=== PATIENT | male | born 1960 | race Caucasian/White ===

== ENCOUNTER 2021-01-08 19:42 | Inpatient (IN) | payer MEDICARE, MEDICAID ==
[~2021-01-08] VITALS: Ht 172.7 cm; Wt 78.6 kg
[2021-01-08 19:48] VITALS: BP 166/112
[2021-01-08] MEDS ORDERED: NOREPINEPHRINE 8 MG/250ML KIT 250 ML IV ONE (19:48)
[2021-01-08] MEDS: NOREPINEPHRINE 8 MG/250ML KIT 250 ML IV SCH (20:00)
[2021-01-08] MEDS ORDERED: PROPOFOL 100 ML IV ONE (20:05)
[2021-01-08] MEDS: PROPOFOL 100 ML IV SCH (20:15)
[2021-01-08 20:23] LABS: Basophils # (auto) 0.1 10 ^3/uL (0-0.2); Basophils % (auto) 0.4 % (0.0-2.0); Eosinophils # (auto) 0.1 10 ^3/uL (0-0.8); Eosinophils % (auto) 0.7 % (0.0-7.0); Hematocrit 44.5 % (41.0-53.0); Hemoglobin 14.9 g/dL (13.5-17.5); Lymphocytes # (auto) 5.8 10 ^3/uL (0.4-5.4); Mean Corpuscular Hemoglobin 31.3 pg (28.0-32.0); Mean Corpuscular Hgb Conc. 33.4 g/dL (32.0-36.0); Mean Corpuscular Volume 93.5 fL (80.0-100.0); Monocytes # (auto) 1.1 10 ^3/uL (0-1.3); Monocytes % (auto) 6.9 % (0.0-12.0); Nucleated Red Blood Cells % 0.1 %; Platelet Count (auto) 207 10^3/uL (140-450); Red Blood Cells 4.75 10^6/uL (4.5-5.90); Red Cell Distribution Width 16.5 % (11.8-14.3); White Blood Cell 16.1 10^3/uL (4.4-10.8)
[2021-01-08 20:41] LABS: Urine Bacteria FEW /hpf (None Seen); Urine Blood 1+ /uL (Negative); Urine Specific Gravity 1.007 (1.001-1.035); Urine WBC 43 /hpf (0 - 3)
[2021-01-08 20:42] LABS: Potassium 3.8 mmol/L (3.5-5.1)
[2021-01-08 20:53] LABS: Albumin 2.9 g/dL (3.4-5.0); BUN/Creatinine Ratio 6.7; Bilirubin, Total 0.4 mg/dL (0.2-1.0); Calcium 8.3 mg/dL (8.5-10.1); Magnesium 2.8 mg/dL (1.6-2.6); Total Protein 7.6 g/dL (6.4-8.2)
[2021-01-08 21:06] LABS: Alcohol, Urine < 3.0 mg/dL (0-10); Amphetamine Screen, Urine NEGATIVE (NEGATIVE); Barbiturate Scree,Urine NEGATIVE (NEGATIVE); Benzodiazephine Screen, Urine NEGATIVE (NEGATIVE); Cannabinoid Screen, Urine NEGATIVE (NEGATIVE); Cocaine Screen, Urine NEGATIVE (NEGATIVE); Opiate Scree,Urine NEGATIVE (NEGATIVE); Phencyclidine Screen, Urine NEGATIVE (NEGATIVE)
[2021-01-08 21:07] LABS: INR 1.06 (0.9-1.15); Partial Thromboplastin Time 27.2 sec (23.0-31.2)
[2021-01-08 21:27] VITALS: BP 158/68
[2021-01-08 22:39] VITALS: BP 122/80
[2021-01-08] MEDS ORDERED: PIPERACILLIN-TAZOB 3.375GM 100 ML IV ONE (23:00)
[2021-01-08] MEDS ORDERED: VANCOMYCIN 1GM/250ML 250 ML IV ONE (23:00)
[2021-01-09] VITALS (78 sets, daily range): BP systolic 100–143; BP diastolic 60–88
[2021-01-09] MEDS ORDERED: SODIUM BICARBONATE 8.4 % INJ 50ML VIAL IV ONE ×2 (00:38→00:45)
[2021-01-09] MEDS ORDERED: MORPHINE SULF INJ 2 MG/ML SYRINGE 1ML IV PRN (02:00)
[2021-01-09] MEDS ORDERED: NITROGLYCERIN 0.4 MG SL TAB SL PRN (02:00)
[2021-01-09] MEDS: SODIUM CHLORIDE 0.9% 1,000 ML IV SCH ×2 (02:00→18:40)
[2021-01-09 04:50] LABS: Lactic Acid w/Reflex 4.2 mmol/L (0.4-2.0)
[2021-01-09] MEDS ORDERED: HEPARIN SODIUM (PORCINE) 5000 UNITS/ML 1ML VIAL SC SCH (06:00)
[2021-01-09] MEDS: PIPERACILLIN-TAZOB 3.375GM 100 ML IV SCH ×3 (06:00→22:00)
[2021-01-09] MEDS: PROPOFOL 100 ML IV SCH ×5 (08:00→22:45)
[2021-01-09] MEDS ORDERED: DEXTROSE (50%) 50ML SYRG IV PRN ×2 (09:45→20:00)
[2021-01-09] MEDS ORDERED: FAMOTIDINE (10MG/ML) 2ML VL IV SCH (10:00)
[2021-01-09] MEDS ORDERED: AZITHROMYCIN 500MG/ 250ML 250 ML IV SCH (10:00)
[2021-01-09 10:08] LABS: Calcium 8.3 mg/dL (8.5-10.1); INR 1.09 (0.9-1.15); Partial Thromboplastin Time 28.5 sec (23.0-31.2); Potassium 3.2 mmol/L (3.5-5.1)
[2021-01-09 10:13] LABS: BUN/Creatinine Ratio 10.2
[2021-01-09 11:03] LABS: Phosphorus 0.9 mg/dL (2.5-4.90)
[2021-01-09] MEDS ORDERED: VANCOMYCIN PER PHARMACY 0 MG IV SCH (11:30)
[2021-01-09] MEDS ORDERED: POTASSIUM PHOSPHATE 44 MEQ in D5W 5% 250 ML IV ONE ×2 (11:30→14:00)
[2021-01-09] MEDS ORDERED: ENOXAPARIN SOD 100 MG/1 ML SYRINGE SC ONE (11:30)
[2021-01-09] MEDS ORDERED: POTASSIUM CHLORIDE 40 MEQ, LIDOCAINE 1% (LOCAL ANESTH.) 4 ML in SODIUM CHL 0.9% 250 ML IV ONE (11:30)
[2021-01-09] MEDS ORDERED: FUROSEMIDE 20 MG/2 ML VIAL IV ONE (11:45)
[2021-01-09] MEDS: NEUTRA-PHOS TABLET PO SCH ×2 (12:00→17:18)
[2021-01-09] MEDS ORDERED: POTASSIUM CHLORIDE 20 MEQ, LIDOCAINE 1% (LOCAL ANESTH.) 2 ML in SODIUM CHL 0.9% 100 ML IV ONE (12:00)
[2021-01-09] MEDS: ACCU-CHEK COMFORT CURVE STRIP VI SCH ×3 (12:03→20:00)
[2021-01-09] MEDS: InsuLIN REG 1unit/0.01ml Soln (100units/ml) SC SCH ×3 (12:04→20:00)
[2021-01-09] MEDS ORDERED: OPTISON 3ml Vial for INJ IV ONE ×2 (12:29→12:30)
[2021-01-09] MEDS ORDERED: EPINEPHrine HCL 1 MG/10 ML SYRG IV ONE (12:56)
[2021-01-09 16:18] LABS: BUN/Creatinine Ratio 15.4; Calcium 7.6 mg/dL (8.5-10.1); Potassium 4.2 mmol/L (3.5-5.1)
[2021-01-09] MEDS ORDERED: VANCOMYCIN 1GM/250ML 250 ML IV ONE (17:00)
[2021-01-09] MEDS ORDERED: BENZ100C97 PO (17:54)
[2021-01-09] MEDS ORDERED: LORA0.5T20 PO (17:54)
[2021-01-09] MEDS ORDERED: LOSA-39 PO (17:54)
[2021-01-09] MEDS ORDERED: MIRT-66 PO (17:54)
[2021-01-09] MEDS ORDERED: ONDA-144 PO (17:54)
[2021-01-09] MEDS ORDERED: TRAZ300T16 PO (17:54)
[2021-01-09] MEDS ORDERED: IBUP200C3 PO (17:54)
[2021-01-09] MEDS ORDERED: HYDR1TAB97 PO (18:17)
[2021-01-09] MEDS ORDERED: ASPI325T4 PO (18:17)
[2021-01-09] MEDS ORDERED: AML5T PO (18:17)
[2021-01-09] MEDS ORDERED: CHOL20009 PO (18:17)
[2021-01-09] MEDS ORDERED: CLON0.1T PO (18:17)
[2021-01-09] MEDS ORDERED: SENN1TAB14 PO (18:17)
[2021-01-09] MEDS ORDERED: LACT10SO70 PO (18:17)
[2021-01-09] MEDS ORDERED: MULTCAP45 PO (18:17)
[2021-01-09] MEDS ORDERED: PRAV20TA3 PO (18:17)
[2021-01-09] MEDS: NOREPINEPHRINE 8 MG/250ML KIT 250 ML IV SCH (20:00)
[2021-01-09] MEDS: SODIUM CHLOR 0.9% PF (SALINE LOCK) 10ML VIAL/SYR IV SCH (22:00)
[2021-01-09] MEDS: ENOXAPARIN SOD 100 MG/1 ML SYRINGE SC SCH (22:00)
[2021-01-09] MEDS: ATORVASTATIN 20 MG TAB PO SCH (22:00)
[2021-01-09 22:01] LABS: BUN/Creatinine Ratio 13.4; Calcium 7.6 mg/dL (8.5-10.1); Potassium 4.2 mmol/L (3.5-5.1)
[2021-01-10] VITALS (103 sets, daily range): BP systolic 105–131; BP diastolic 59–81
[2021-01-10 04:00] LABS: Basophils # (auto) 0.1 10 ^3/uL (0-0.2); Basophils % (auto) 0.4 % (0.0-2.0); Eosinophils # (auto) 0 10 ^3/uL (0-0.8); Eosinophils % (auto) 0.2 % (0.0-7.0); Hematocrit 39.2 % (41.0-53.0); Hemoglobin 13.6 g/dL (13.5-17.5); Lymphocytes # (auto) 1.2 10 ^3/uL (0.4-5.4); Lymphocytes % (auto) 8.1 % (10.0-50.0); Mean Corpuscular Hemoglobin 31.4 pg (28.0-32.0); Mean Corpuscular Hgb Conc. 34.7 g/dL (32.0-36.0); Mean Corpuscular Volume 90.5 fL (80.0-100.0); Monocytes # (auto) 0.9 10 ^3/uL (0-1.3); Monocytes % (auto) 5.9 % (0.0-12.0); Neutrophils % (auto) 85.4 % (37.0-80.0); Platelet Count (auto) 196 10^3/uL (140-450); Red Blood Cells 4.33 10^6/uL (4.5-5.90); Red Cell Distribution Width 16.5 % (11.8-14.3); White Blood Cell 15.2 10^3/uL (4.4-10.8)
[2021-01-10] MEDS: InsuLIN REG 1unit/0.01ml Soln (100units/ml) SC SCH ×5 (04:00→15:56)
[2021-01-10] MEDS: ACCU-CHEK COMFORT CURVE STRIP VI SCH ×5 (04:00→15:56)
[2021-01-10] MEDS: PROPOFOL 100 ML IV SCH ×6 (04:19→20:50)
[2021-01-10 04:22] LABS: Magnesium 1.6 mg/dL (1.6-2.6); Phosphorus 3.5 mg/dL (2.5-4.90)
[2021-01-10 04:34] LABS: INR 1.14 (0.9-1.15); Partial Thromboplastin Time 38.2 sec (23.0-31.2)
[2021-01-10 05:15] LABS: Albumin 2.4 g/dL (3.4-5.0); Calcium 7.5 mg/dL (8.5-10.1)
[2021-01-10 05:18] LABS: BUN/Creatinine Ratio 14.4; Bilirubin, Total 0.6 mg/dL (0.2-1.0); Total Protein 6.7 g/dL (6.4-8.2)
[2021-01-10] MEDS: PIPERACILLIN-TAZOB 3.375GM 100 ML IV SCH ×3 (06:00→22:15)
[2021-01-10] MEDS: NEUTRA-PHOS TABLET PO SCH ×3 (08:00→17:10)
[2021-01-10] MEDS: ASPirin 81 mg TAB PO SCH (10:00)
[2021-01-10 10:12] LABS: BUN/Creatinine Ratio 16.2; Calcium 7.7 mg/dL (8.5-10.1); Potassium 3.6 mmol/L (3.5-5.1)
[2021-01-10] MEDS: VANCOMYCIN 1GM/250ML 250 ML IV SCH ×2 (11:04→20:50)
[2021-01-10] MEDS: FAMOTIDINE (10MG/ML) 2ML VL IV SCH ×2 (11:04→20:50)
[2021-01-10] MEDS: SODIUM CHLOR 0.9% PF (SALINE LOCK) 10ML VIAL/SYR IV SCH ×2 (11:05→20:50)
[2021-01-10] MEDS: SODIUM CHLORIDE 0.9% 1,000 ML IV SCH ×2 (11:20→17:18)
[2021-01-10] MEDS: ARTIFICIAL TEAR OPTH(EYE) OINT 3.5GM EACHEYE PRN (11:40)
[2021-01-10] MEDS ORDERED: MAGNESIUM SULFATE 1GM/100ML 100 ML IV ONE (12:30)
[2021-01-10] MEDS ORDERED: FUROSEMIDE 40 MG/4 ML VIAL IV ONE (12:30)
[2021-01-10 12:59] LABS: Cholesterol 96 mg/dL (< 200)
[2021-01-10 13:02] LABS: HDL Cholesterol 38 mg/dL (40-59); LDL Cholesterol 44 mg/dL (< 100); Triglycerides 121 mg/dL (< 150)
[2021-01-10] MEDS: ENOXAPARIN SOD 100 MG/1 ML SYRINGE SC SCH ×2 (13:02→20:50)
[2021-01-10 16:25] LABS: BUN/Creatinine Ratio 12.3; Calcium 7.5 mg/dL (8.5-10.1); Magnesium 2.4 mg/dL (1.6-2.6); Potassium 3.4 mmol/L (3.5-5.1)
[2021-01-10] MEDS ORDERED: POTASSIUM CHL 20MEQ/100ML 100 ML IV ONE (17:00)
[2021-01-10] MEDS: NOREPINEPHRINE 8 MG/250ML KIT 250 ML IV SCH (19:34)
[2021-01-10] MEDS: ATORVASTATIN 20 MG TAB PO SCH (20:50)
[2021-01-11] VITALS (103 sets, daily range): BP systolic 96–240; BP diastolic 43–235
[2021-01-11 04:28] LABS: Basophils # (auto) 0 10 ^3/uL (0-0.2); Basophils % (auto) 0.4 % (0.0-2.0); Eosinophils # (auto) 0 10 ^3/uL (0-0.8); Eosinophils % (auto) 0.5 % (0.0-7.0); Hematocrit 35.9 % (41.0-53.0); Hemoglobin 12.2 g/dL (13.5-17.5); Lymphocytes % (auto) 19.6 % (10.0-50.0); Mean Corpuscular Hemoglobin 30.7 pg (28.0-32.0); Mean Corpuscular Hgb Conc. 34.1 g/dL (32.0-36.0); Mean Corpuscular Volume 90.2 fL (80.0-100.0); Monocytes # (auto) 0.7 10 ^3/uL (0-1.3); Monocytes % (auto) 6.6 % (0.0-12.0); Neutrophils # (auto) 7.3 10 ^3/uL (1.6-8.6); Neutrophils % (auto) 72.9 % (37.0-80.0); Nucleated Red Blood Cells % 0.1 %; Platelet Count (auto) 188 10^3/uL (140-450); Red Blood Cells 3.98 10^6/uL (4.5-5.90)
[2021-01-11 04:29] LABS: Albumin 2.1 g/dL (3.4-5.0); Calcium 7.4 mg/dL (8.5-10.1); Potassium 4.3 mmol/L (3.5-5.1)
[2021-01-11 04:31] LABS: BUN/Creatinine Ratio 8.6
[2021-01-11 04:34] LABS: Bilirubin, Total 0.5 mg/dL (0.2-1.0); Total Protein 6.2 g/dL (6.4-8.2)
[2021-01-11] MEDS: PIPERACILLIN-TAZOB 3.375GM 100 ML IV SCH ×3 (05:30→21:58)
[2021-01-11 10:10] LABS: Basophils # (auto) 0.1 10 ^3/uL (0-0.2); Basophils % (auto) 0.6 % (0.0-2.0); Eosinophils # (auto) 0.1 10 ^3/uL (0-0.8); Eosinophils % (auto) 0.7 % (0.0-7.0); Hematocrit 34.9 % (41.0-53.0); Hemoglobin 11.6 g/dL (13.5-17.5); Lymphocytes # (auto) 1.6 10 ^3/uL (0.4-5.4); Lymphocytes % (auto) 18.8 % (10.0-50.0); Mean Corpuscular Hemoglobin 30.4 pg (28.0-32.0); Mean Corpuscular Hgb Conc. 33.2 g/dL (32.0-36.0); Mean Corpuscular Volume 91.7 fL (80.0-100.0); Monocytes # (auto) 0.9 10 ^3/uL (0-1.3); Monocytes % (auto) 10.2 % (0.0-12.0); Neutrophils % (auto) 69.7 % (37.0-80.0); Nucleated Red Blood Cells % 0.2 %; Platelet Count (auto) 158 10^3/uL (140-450); Red Cell Distribution Width 16.6 % (11.8-14.3); White Blood Cell 8.6 10^3/uL (4.4-10.8)
[2021-01-11] MEDS: NEUTRA-PHOS TABLET PO SCH ×3 (10:25→18:01)
[2021-01-11] MEDS: ASPirin 81 mg TAB PO SCH (10:28)
[2021-01-11] MEDS: VANCOMYCIN 1GM/250ML 250 ML IV SCH (10:28)
[2021-01-11] MEDS: FAMOTIDINE (10MG/ML) 2ML VL IV SCH ×2 (10:28→21:57)
[2021-01-11] MEDS: SODIUM CHLOR 0.9% PF (SALINE LOCK) 10ML VIAL/SYR IV SCH ×2 (10:28→21:57)
[2021-01-11] MEDS: ENOXAPARIN SOD 100 MG/1 ML SYRINGE SC SCH (10:29)
[2021-01-11] MEDS: PROPOFOL 100 ML IV SCH ×3 (11:00→23:05)
[2021-01-11] MEDS: NOREPINEPHRINE 8 MG/250ML KIT 250 ML IV SCH (18:02)
[2021-01-11] MEDS: SODIUM CHLORIDE 0.9% 1,000 ML IV SCH (20:40)
[2021-01-11] MEDS: ENOXAPARIN SOD 80 MG/0.8ML SYRINGE SC SCH (21:58)
[2021-01-11] MEDS: ATORVASTATIN 20 MG TAB PO SCH (21:58)
[2021-01-12] VITALS (82 sets, daily range): BP systolic 117–181; BP diastolic 57–97
[2021-01-12] MEDS: PROPOFOL 100 ML IV SCH ×4 (03:28→15:00)
[2021-01-12 05:16] LABS: Basophils # (auto) 0 10 ^3/uL (0-0.2); Basophils % (auto) 0.7 % (0.0-2.0); Eosinophils # (auto) 0.1 10 ^3/uL (0-0.8); Eosinophils % (auto) 1.4 % (0.0-7.0); Lymphocytes # (auto) 1.6 10 ^3/uL (0.4-5.4); Lymphocytes % (auto) 26.2 % (10.0-50.0); Mean Corpuscular Hemoglobin 31.5 pg (28.0-32.0); Mean Corpuscular Hgb Conc. 34.4 g/dL (32.0-36.0); Mean Corpuscular Volume 91.7 fL (80.0-100.0); Monocytes # (auto) 0.6 10 ^3/uL (0-1.3); Neutrophils # (auto) 3.9 10 ^3/uL (1.6-8.6); Neutrophils % (auto) 62.7 % (37.0-80.0); Nucleated Red Blood Cells % 0.2 %; Platelet Count (auto) 141 10^3/uL (140-450); Red Blood Cells 3.49 10^6/uL (4.5-5.90); Red Cell Distribution Width 16.8 % (11.8-14.3); White Blood Cell 6.2 10^3/uL (4.4-10.8)
[2021-01-12 05:31] LABS: Potassium 3.2 mmol/L (3.5-5.1)
[2021-01-12 05:38] LABS: BUN/Creatinine Ratio 8.7; Calcium 7.1 mg/dL (8.5-10.1)
[2021-01-12] MEDS: PIPERACILLIN-TAZOB 3.375GM 100 ML IV SCH (06:10)
[2021-01-12] MEDS: NEUTRA-PHOS TABLET PO SCH ×3 (07:48→17:39)
[2021-01-12] MEDS: FAMOTIDINE (10MG/ML) 2ML VL IV SCH ×2 (10:00→21:46)
[2021-01-12] MEDS: SODIUM CHLOR 0.9% PF (SALINE LOCK) 10ML VIAL/SYR IV SCH ×2 (10:00→21:46)
[2021-01-12] MEDS: ASPirin 81 mg TAB PO SCH (10:00)
[2021-01-12] MEDS: ENOXAPARIN SOD 80 MG/0.8ML SYRINGE SC SCH ×3 (10:00→22:00)
[2021-01-12] MEDS: SODIUM CHLORIDE 0.9% 1,000 ML IV SCH (13:00)
[2021-01-12] MEDS ORDERED: POTASSIUM EFFERVESENT TAB 25 MEQ GT ONE (13:30)
[2021-01-12] MEDS: levoFLOXacin 500MG 100 ML IV SCH (15:00)
[2021-01-12] MEDS: NOREPINEPHRINE 8 MG/250ML KIT 250 ML IV SCH (17:39)
[2021-01-12] MEDS: ATORVASTATIN 20 MG TAB PO SCH (21:47)
[2021-01-13] VITALS (62 sets, daily range): BP systolic 130–188; BP diastolic 68–106
[2021-01-13] MEDS: SODIUM CHLORIDE 0.9% 1,000 ML IV SCH ×2 (04:12→21:50)
[2021-01-13 05:21] LABS: Basophils # (auto) 0 10 ^3/uL (0-0.2); Basophils % (auto) 0.6 % (0.0-2.0); Eosinophils # (auto) 0.1 10 ^3/uL (0-0.8); Hemoglobin 12.7 g/dL (13.5-17.5); Lymphocytes # (auto) 1.3 10 ^3/uL (0.4-5.4); Lymphocytes % (auto) 17.3 % (10.0-50.0); Mean Corpuscular Hemoglobin 30.9 pg (28.0-32.0); Mean Corpuscular Hgb Conc. 34.2 g/dL (32.0-36.0); Mean Corpuscular Volume 90.4 fL (80.0-100.0); Monocytes % (auto) 12.9 % (0.0-12.0); Neutrophils # (auto) 5.1 10 ^3/uL (1.6-8.6); Neutrophils % (auto) 68.2 % (37.0-80.0); Nucleated Red Blood Cells % 0.1 %; Platelet Count (auto) 152 10^3/uL (140-450); Red Cell Distribution Width 16.1 % (11.8-14.3); White Blood Cell 7.4 10^3/uL (4.4-10.8)
[2021-01-13 05:42] LABS: Potassium 3.9 mmol/L (3.5-5.1)
[2021-01-13] MEDS ORDERED: hydrALAZINE HCL 20 MG/ML VL IV ONE (05:45)
[2021-01-13] MEDS ORDERED: hydrALAZINE HCL 20 MG/ML VL ONE (05:46)
[2021-01-13 05:47] LABS: BUN/Creatinine Ratio 7.5; Calcium 7.8 mg/dL (8.5-10.1)
[2021-01-13] MEDS: ONDANSETRON HCL 4 MG/2 ML VIAL IV PRN (06:08)
[2021-01-13] MEDS: NEUTRA-PHOS TABLET PO SCH ×3 (09:42→18:00)
[2021-01-13] MEDS: FAMOTIDINE (10MG/ML) 2ML VL IV SCH ×2 (09:44→21:49)
[2021-01-13] MEDS: levoFLOXacin 500MG 100 ML IV SCH (09:44)
[2021-01-13] MEDS: SODIUM CHLOR 0.9% PF (SALINE LOCK) 10ML VIAL/SYR IV SCH ×2 (09:44→21:50)
[2021-01-13] MEDS: ASPirin 81 mg TAB PO SCH (09:46)
[2021-01-13] MEDS: ENOXAPARIN SOD 80 MG/0.8ML SYRINGE SC SCH ×2 (09:46→21:50)
[2021-01-13] MEDS: hydrALAZINE HCL 20 MG/ML VL IV PRN (11:50)
[2021-01-13] MEDS ORDERED: amLODIPine BESYLATE 5 MG TAB PO ONE (13:45)
[2021-01-13] MEDS: NOREPINEPHRINE 8 MG/250ML KIT 250 ML IV SCH (19:06)
[2021-01-13] MEDS: LORazepam 2MG/ML-1ML VIAL IV PRN ×2 (19:29→21:50)
[2021-01-13] MEDS: ARTIFICIAL TEAR OPTH(EYE) OINT 3.5GM EACHEYE PRN (19:30)
[2021-01-13] MEDS: PROPOFOL 100 ML IV SCH (20:15)
[2021-01-13] MEDS: ATORVASTATIN 20 MG TAB PO SCH (21:50)
[2021-01-14] VITALS (36 sets, daily range): BP systolic 102–157; BP diastolic 69–100
[2021-01-14] MEDS: LORazepam 2MG/ML-1ML VIAL IV PRN ×4 (01:43→19:52)
[2021-01-14 04:25] LABS: Basophils # (auto) 0.1 10 ^3/uL (0-0.2); Basophils % (auto) 0.6 % (0.0-2.0); Eosinophils # (auto) 0 10 ^3/uL (0-0.8); Eosinophils % (auto) 0.1 % (0.0-7.0); Hematocrit 37.9 % (41.0-53.0); Lymphocytes # (auto) 1.7 10 ^3/uL (0.4-5.4); Lymphocytes % (auto) 17.8 % (10.0-50.0); Mean Corpuscular Hemoglobin 30.8 pg (28.0-32.0); Mean Corpuscular Hgb Conc. 34.2 g/dL (32.0-36.0); Monocytes # (auto) 1.2 10 ^3/uL (0-1.3); Monocytes % (auto) 11.9 % (0.0-12.0); Neutrophils # (auto) 6.7 10 ^3/uL (1.6-8.6); Neutrophils % (auto) 69.6 % (37.0-80.0); Nucleated Red Blood Cells % 0.1 %; Platelet Count (auto) 176 10^3/uL (140-450); Red Blood Cells 4.21 10^6/uL (4.5-5.90); Red Cell Distribution Width 16.1 % (11.8-14.3); White Blood Cell 9.7 10^3/uL (4.4-10.8)
[2021-01-14 04:38] LABS: Albumin 2.5 g/dL (3.4-5.0); Calcium 8.1 mg/dL (8.5-10.1); Potassium 3.3 mmol/L (3.5-5.1)
[2021-01-14 04:43] LABS: BUN/Creatinine Ratio 6.7; Bilirubin, Total 0.7 mg/dL (0.2-1.0); Total Protein 7.2 g/dL (6.4-8.2)
[2021-01-14] MEDS: NEUTRA-PHOS TABLET PO SCH ×3 (07:40→17:44)
[2021-01-14] MEDS: MORPHINE SULFATE 4 MG/ML SYR/VIAL IV PRN (08:34)
[2021-01-14] MEDS: ASPirin 81 mg TAB PO SCH (09:24)
[2021-01-14] MEDS: ENOXAPARIN SOD 80 MG/0.8ML SYRINGE SC SCH ×2 (09:24→19:51)
[2021-01-14] MEDS: FAMOTIDINE (10MG/ML) 2ML VL IV SCH ×2 (09:24→19:51)
[2021-01-14] MEDS: levoFLOXacin 500MG 100 ML IV SCH (09:24)
[2021-01-14] MEDS: SODIUM CHLOR 0.9% PF (SALINE LOCK) 10ML VIAL/SYR IV SCH ×2 (09:27→20:35)
[2021-01-14] MEDS: amLODIPine BESYLATE 5 MG TAB PO SCH (09:27)
[2021-01-14] MEDS: hydrALAZINE HCL 20 MG/ML VL IV PRN (10:36)
[2021-01-14] MEDS ORDERED: METOPROLOL TARTRATE 25 MG TAB PO ONE (12:15)
[2021-01-14] MEDS ORDERED: Jevity 1.2 Cal/Fiber 1 Liter GT SCH (12:15)
[2021-01-14] MEDS ORDERED: POTASSIUM EFFERVESENT TAB 25 MEQ GT ONE (12:15)
[2021-01-14] MEDS: BACLOFEN 10 MG TAB PO PRN ×2 (12:55→19:52)
[2021-01-14] MEDS: ACETAMINOPHEN 650 MG RECT SUPP PR PRN (15:59)
[2021-01-14] MEDS: ATORVASTATIN 20 MG TAB PO SCH (19:51)
[2021-01-14] MEDS: PROPOFOL 100 ML IV SCH (20:15)
[2021-01-14] MEDS: METOPROLOL TARTRATE 25 MG TAB PO SCH (20:35)
[2021-01-15] VITALS (34 sets, daily range): BP systolic 115–150; BP diastolic 75–99
[2021-01-15] MEDS: LORazepam 2MG/ML-1ML VIAL IV PRN ×4 (01:20→23:52)
[2021-01-15 05:45] LABS: Basophils # (auto) 0.1 10 ^3/uL (0-0.2); Basophils % (auto) 0.9 % (0.0-2.0); Eosinophils # (auto) 0 10 ^3/uL (0-0.8); Eosinophils % (auto) 0.5 % (0.0-7.0); Hematocrit 37.1 % (41.0-53.0); Hemoglobin 12.9 g/dL (13.5-17.5); Lymphocytes # (auto) 1.7 10 ^3/uL (0.4-5.4); Mean Corpuscular Hemoglobin 31.2 pg (28.0-32.0); Mean Corpuscular Hgb Conc. 34.6 g/dL (32.0-36.0); Mean Corpuscular Volume 90.1 fL (80.0-100.0); Monocytes # (auto) 1.2 10 ^3/uL (0-1.3); Monocytes % (auto) 13.8 % (0.0-12.0); Neutrophils # (auto) 5.8 10 ^3/uL (1.6-8.6); Neutrophils % (auto) 65.8 % (37.0-80.0); Nucleated Red Blood Cells % 0.2 %; Platelet Count (auto) 171 10^3/uL (140-450); Red Blood Cells 4.12 10^6/uL (4.5-5.90); Red Cell Distribution Width 16.1 % (11.8-14.3); White Blood Cell 8.9 10^3/uL (4.4-10.8)
[2021-01-15 06:03] LABS: Albumin 2.4 g/dL (3.4-5.0); Calcium 8.4 mg/dL (8.5-10.1); Magnesium 2.6 mg/dL (1.6-2.6); Potassium 3.3 mmol/L (3.5-5.1)
[2021-01-15 06:09] LABS: Bilirubin, Total 0.9 mg/dL (0.2-1.0); Total Protein 7.1 g/dL (6.4-8.2)
[2021-01-15] MEDS: BACLOFEN 10 MG TAB PO PRN (06:15)
[2021-01-15] MEDS: NEUTRA-PHOS TABLET PO SCH ×3 (08:00→18:00)
[2021-01-15] MEDS: ASPirin 81 mg TAB PO SCH (10:00)
[2021-01-15] MEDS: levoFLOXacin 500MG 100 ML IV SCH (10:00)
[2021-01-15] MEDS: SODIUM CHLOR 0.9% PF (SALINE LOCK) 10ML VIAL/SYR IV SCH ×2 (10:00→21:14)
[2021-01-15] MEDS: ENOXAPARIN SOD 80 MG/0.8ML SYRINGE SC SCH (10:00)
[2021-01-15] MEDS: METOPROLOL TARTRATE 25 MG TAB PO SCH ×2 (10:00→21:15)
[2021-01-15] MEDS: amLODIPine BESYLATE 5 MG TAB PO SCH (10:00)
[2021-01-15] MEDS: FAMOTIDINE (10MG/ML) 2ML VL IV SCH ×2 (10:00→21:14)
[2021-01-15] MEDS: ACETAMINOPHEN 650 MG RECT SUPP PR PRN (11:01)
[2021-01-15] MEDS: ONDANSETRON HCL 4 MG/2 ML VIAL IV PRN (11:14)
[2021-01-15 12:48] LABS: INR 1.03 (0.9-1.15); Partial Thromboplastin Time 30.3 sec (23.0-31.2)
[2021-01-15] MEDS ORDERED: POTASSIUM CHL 20MEQ/100ML 100 ML IV ONE (13:15)
[2021-01-15] MEDS: CLINDAMYCIN 600MG IV 50 ML IV SCH ×2 (16:01→21:13)
[2021-01-15] MEDS: PROPOFOL 100 ML IV SCH (20:15)
[2021-01-15] MEDS: ATORVASTATIN 20 MG TAB PO SCH (21:15)
[2021-01-16] VITALS (31 sets, daily range): BP systolic 112–154; BP diastolic 76–94
[2021-01-16] MEDS: LORazepam 2MG/ML-1ML VIAL IV PRN ×5 (03:15→21:47)
[2021-01-16 04:41] LABS: Basophils # (auto) 0 10 ^3/uL (0-0.2); Basophils % (auto) 0.5 % (0.0-2.0); Eosinophils # (auto) 0 10 ^3/uL (0-0.8); Eosinophils % (auto) 0.2 % (0.0-7.0); Hematocrit 37.6 % (41.0-53.0); Hemoglobin 12.8 g/dL (13.5-17.5); Lymphocytes % (auto) 20.8 % (10.0-50.0); Mean Corpuscular Hgb Conc. 34.1 g/dL (32.0-36.0); Monocytes # (auto) 1.3 10 ^3/uL (0-1.3); Monocytes % (auto) 13.6 % (0.0-12.0); Neutrophils # (auto) 6.3 10 ^3/uL (1.6-8.6); Neutrophils % (auto) 64.9 % (37.0-80.0); Nucleated Red Blood Cells % 0.1 %; Platelet Count (auto) 179 10^3/uL (140-450); Red Blood Cells 4.13 10^6/uL (4.5-5.90); White Blood Cell 9.7 10^3/uL (4.4-10.8)
[2021-01-16] MEDS: CLINDAMYCIN 600MG IV 50 ML IV SCH ×3 (05:11→21:10)
[2021-01-16 05:33] LABS: Potassium 3.3 mmol/L (3.5-5.1)
[2021-01-16 05:40] LABS: Albumin 2.4 g/dL (3.4-5.0); BUN/Creatinine Ratio 12.5; Calcium 8.4 mg/dL (8.5-10.1)
[2021-01-16 05:43] LABS: Bilirubin, Total 0.8 mg/dL (0.2-1.0); Total Protein 7.1 g/dL (6.4-8.2)
[2021-01-16] MEDS: NEUTRA-PHOS TABLET PO SCH ×3 (08:00→17:56)
[2021-01-16] MEDS: FAMOTIDINE (10MG/ML) 2ML VL IV SCH ×2 (09:51→21:11)
[2021-01-16] MEDS: SODIUM CHLOR 0.9% PF (SALINE LOCK) 10ML VIAL/SYR IV SCH ×2 (09:51→21:10)
[2021-01-16] MEDS: levoFLOXacin 500MG 100 ML IV SCH (09:51)
[2021-01-16] MEDS: METOPROLOL TARTRATE 25 MG TAB PO SCH ×2 (10:00→21:11)
[2021-01-16] MEDS ORDERED: POTASSIUM CHLORIDE 40 MEQ, LIDOCAINE 1% (LOCAL ANESTH.) 4 ML in SODIUM CHL 0.9% 250 ML IV ONE (11:00)
[2021-01-16] MEDS: POTASSIUM CHLORIDE 20 MEQ in D5W 5% 1,000 ML IV SCH (15:11)
[2021-01-16] MEDS: PROPOFOL 100 ML IV SCH (19:15)
[2021-01-16] MEDS: ATORVASTATIN 20 MG TAB PO SCH ×2 (21:11→22:00)
[2021-01-17] VITALS (36 sets, daily range): BP systolic 120–151; BP diastolic 73–95
[2021-01-17] MEDS: LORazepam 2MG/ML-1ML VIAL IV PRN ×5 (01:25→21:59)
[2021-01-17] MEDS: POTASSIUM CHLORIDE 20 MEQ in D5W 5% 1,000 ML IV SCH ×2 (03:10→19:54)
[2021-01-17] MEDS: ARTIFICIAL TEAR OPTH(EYE) OINT 3.5GM EACHEYE PRN (03:11)
[2021-01-17] MEDS: ACETAMINOPHEN 650 MG RECT SUPP PR PRN (04:34)
[2021-01-17] MEDS: CLINDAMYCIN 600MG IV 50 ML IV SCH ×3 (05:08→20:53)
[2021-01-17 05:13] LABS: Basophils # (auto) 0.1 10 ^3/uL (0-0.2); Eosinophils # (auto) 0 10 ^3/uL (0-0.8); Eosinophils % (auto) 0.3 % (0.0-7.0); Hematocrit 33.7 % (41.0-53.0); Hemoglobin 11.5 g/dL (13.5-17.5); Lymphocytes % (auto) 28.1 % (10.0-50.0); Mean Corpuscular Hgb Conc. 34.2 g/dL (32.0-36.0); Mean Corpuscular Volume 90.6 fL (80.0-100.0); Monocytes # (auto) 1.2 10 ^3/uL (0-1.3); Monocytes % (auto) 11.4 % (0.0-12.0); Neutrophils # (auto) 6.4 10 ^3/uL (1.6-8.6); Neutrophils % (auto) 59.2 % (37.0-80.0); Platelet Count (auto) 195 10^3/uL (140-450); Red Blood Cells 3.72 10^6/uL (4.5-5.90); Red Cell Distribution Width 16.4 % (11.8-14.3); White Blood Cell 10.8 10^3/uL (4.4-10.8)
[2021-01-17 05:26] LABS: Albumin 2.4 g/dL (3.4-5.0); Calcium 7.8 mg/dL (8.5-10.1); Potassium 3.3 mmol/L (3.5-5.1)
[2021-01-17 05:31] LABS: Bilirubin, Total 0.7 mg/dL (0.2-1.0); Total Protein 6.9 g/dL (6.4-8.2)
[2021-01-17] MEDS: NEUTRA-PHOS TABLET PO SCH ×2 (07:31→12:19)
[2021-01-17] MEDS: METOPROLOL TARTRATE 25 MG TAB PO SCH ×2 (09:45→20:54)
[2021-01-17] MEDS: levoFLOXacin 500MG 100 ML IV SCH (09:45)
[2021-01-17] MEDS: SODIUM CHLOR 0.9% PF (SALINE LOCK) 10ML VIAL/SYR IV SCH ×2 (09:46→20:54)
[2021-01-17] MEDS: FAMOTIDINE (10MG/ML) 2ML VL IV SCH ×2 (09:46→20:54)
[2021-01-17] MEDS ORDERED: POTASSIUM CHLORIDE 40 MEQ, LIDOCAINE 1% (LOCAL ANESTH.) 4 ML in SODIUM CHL 0.9% 250 ML IV ONE (12:30)
[2021-01-17] MEDS: PROPOFOL 100 ML IV SCH (16:16)
[2021-01-17] MEDS: BACLOFEN 10 MG TAB PO PRN (19:45)
[2021-01-18] VITALS (44 sets, daily range): BP systolic 115–151; BP diastolic 59–90
[2021-01-18] MEDS: LORazepam 2MG/ML-1ML VIAL IV PRN ×9 (00:03→22:55)
[2021-01-18] MEDS: ACETAMINOPHEN 650 MG RECT SUPP PR PRN (02:04)
[2021-01-18] MEDS: CLINDAMYCIN 600MG IV 50 ML IV SCH ×3 (05:51→22:29)
[2021-01-18] MEDS: POTASSIUM CHLORIDE 20 MEQ in D5W 5% 1,000 ML IV SCH (08:46)
[2021-01-18] MEDS: levoFLOXacin 500MG 100 ML IV SCH (09:10)
[2021-01-18] MEDS: FAMOTIDINE (10MG/ML) 2ML VL IV SCH ×2 (09:11→22:29)
[2021-01-18] MEDS: SODIUM CHLOR 0.9% PF (SALINE LOCK) 10ML VIAL/SYR IV SCH ×2 (09:11→22:30)
[2021-01-18] MEDS: METOPROLOL TARTRATE 25 MG TAB PO SCH ×2 (09:12→22:00)
[2021-01-18] MEDS: BACLOFEN 10 MG TAB PO PRN ×2 (09:51→09:59)
[2021-01-18] MEDS: ARTIFICIAL TEAR OPTH(EYE) OINT 3.5GM EACHEYE PRN (10:40)
[2021-01-18] MEDS ORDERED: METOCLOPRAMIDE HCL 5MG/ml INJ 2ml VIAL IV ONE (14:45)
[2021-01-18] MEDS: PROPOFOL 100 ML IV SCH (20:15)
[2021-01-18] MEDS: METOCLOPRAMIDE HCL 5MG/ml INJ 2ml VIAL IV SCH (22:29)
[2021-01-18] MEDS: hydrALAZINE HCL 20 MG/ML VL IV PRN (22:31)
[2021-01-18] MEDS: MORPHINE SULFATE 4 MG/ML SYR/VIAL IV PRN (23:15)
[2021-01-19] VITALS (34 sets, daily range): BP systolic 92–127; BP diastolic 56–85
[2021-01-19] MEDS: LORazepam 2MG/ML-1ML VIAL IV PRN ×2 (02:44→12:41)
[2021-01-19 05:23] LABS: Basophils # (auto) 0 10 ^3/uL (0-0.2); Basophils % (auto) 0.3 % (0.0-2.0); Eosinophils # (auto) 0 10 ^3/uL (0-0.8); Eosinophils % (auto) 0.4 % (0.0-7.0); Hemoglobin 11.3 g/dL (13.5-17.5); Lymphocytes # (auto) 2.2 10 ^3/uL (0.4-5.4); Lymphocytes % (auto) 20.6 % (10.0-50.0); Mean Corpuscular Hgb Conc. 34.3 g/dL (32.0-36.0); Mean Corpuscular Volume 90.5 fL (80.0-100.0); Monocytes # (auto) 0.9 10 ^3/uL (0-1.3); Neutrophils # (auto) 7.7 10 ^3/uL (1.6-8.6); Neutrophils % (auto) 70.7 % (37.0-80.0); Nucleated Red Blood Cells % 0.1 %; Platelet Count (auto) 215 10^3/uL (140-450); Red Blood Cells 3.64 10^6/uL (4.5-5.90); Red Cell Distribution Width 16.2 % (11.8-14.3); White Blood Cell 10.9 10^3/uL (4.4-10.8)
[2021-01-19 05:34] LABS: Calcium 8.2 mg/dL (8.5-10.1); Potassium 3.2 mmol/L (3.5-5.1)
[2021-01-19 05:36] LABS: BUN/Creatinine Ratio 9.1
[2021-01-19] MEDS: CLINDAMYCIN 600MG IV 50 ML IV SCH ×3 (06:00→22:39)
[2021-01-19] MEDS: METOCLOPRAMIDE HCL 5MG/ml INJ 2ml VIAL IV SCH ×3 (06:00→22:39)
[2021-01-19] MEDS ORDERED: POTASSIUM CHL 20MEQ/100ML 100 ML IV ONE (08:00)
[2021-01-19] MEDS: METOPROLOL TARTRATE 25 MG TAB PO SCH ×2 (10:00→22:00)
[2021-01-19] MEDS: FAMOTIDINE (10MG/ML) 2ML VL IV SCH ×2 (10:01→22:39)
[2021-01-19] MEDS: SODIUM CHLOR 0.9% PF (SALINE LOCK) 10ML VIAL/SYR IV SCH ×2 (10:01→22:40)
[2021-01-19] MEDS: levoFLOXacin 500MG 100 ML IV SCH (10:28)
[2021-01-19] MEDS: ARTIFICIAL TEAR OPTH(EYE) OINT 3.5GM EACHEYE PRN (10:35)
[2021-01-19] MEDS: BACLOFEN 10 MG TAB PO PRN (10:35)
[2021-01-19] MEDS ORDERED: MORPHINE SULF INJ 2 MG/ML SYRINGE 1ML IV PRN (15:30)
[2021-01-19] MEDS: D5W/ SOD CHL 0.9%/KCL 20MEQ 1,000 ML IV SCH (15:35)
[2021-01-19] MEDS: LACTULOSE 20Gm/30ML SOLN PO SCH (17:53)
[2021-01-20] VITALS (48 sets, daily range): BP systolic 110–166; BP diastolic 68–91
[2021-01-20 04:41] LABS: BUN/Creatinine Ratio 9.2; Calcium 7.8 mg/dL (8.5-10.1); Potassium 3.6 mmol/L (3.5-5.1)
[2021-01-20] MEDS: D5W/ SOD CHL 0.9%/KCL 20MEQ 1,000 ML IV SCH ×2 (04:50→18:20)
[2021-01-20] MEDS: CLINDAMYCIN 600MG IV 50 ML IV SCH ×3 (06:00→23:18)
[2021-01-20] MEDS: METOCLOPRAMIDE HCL 5MG/ml INJ 2ml VIAL IV SCH ×3 (06:00→23:21)
[2021-01-20] MEDS: LACTULOSE 20Gm/30ML SOLN PO SCH ×4 (06:00→18:20)
[2021-01-20] MEDS: PROPOFOL 100 ML IV SCH ×2 (07:48→18:21)
[2021-01-20] MEDS: FAMOTIDINE (10MG/ML) 2ML VL IV SCH ×2 (10:13→23:18)
[2021-01-20] MEDS: levoFLOXacin 500MG 100 ML IV SCH (10:13)
[2021-01-20] MEDS: SODIUM CHLOR 0.9% PF (SALINE LOCK) 10ML VIAL/SYR IV SCH ×2 (10:13→23:22)
[2021-01-20] MEDS: METOPROLOL TARTRATE 25 MG TAB PO SCH ×2 (10:14→22:00)
[2021-01-21] VITALS (43 sets, daily range): BP systolic 135–164; BP diastolic 77–106
[2021-01-21] MEDS: LACTULOSE 20Gm/30ML SOLN PO SCH ×4 (06:00→18:20)
[2021-01-21] MEDS: CLINDAMYCIN 600MG IV 50 ML IV SCH ×2 (06:00→13:51)
[2021-01-21] MEDS: METOCLOPRAMIDE HCL 5MG/ml INJ 2ml VIAL IV SCH ×2 (06:00→13:52)
[2021-01-21] MEDS: ARTIFICIAL TEAR OPTH(EYE) OINT 3.5GM EACHEYE PRN ×3 (08:00→16:00)
[2021-01-21] MEDS: D5W/ SOD CHL 0.9%/KCL 20MEQ 1,000 ML IV SCH (08:20)
[2021-01-21] MEDS: FAMOTIDINE (10MG/ML) 2ML VL IV SCH (10:06)
[2021-01-21] MEDS: SODIUM CHLOR 0.9% PF (SALINE LOCK) 10ML VIAL/SYR IV SCH (10:06)
[2021-01-21] MEDS: levoFLOXacin 500MG 100 ML IV SCH (10:07)
[2021-01-21] MEDS: METOPROLOL TARTRATE 25 MG TAB PO SCH (10:07)
[2021-01-21] MEDS: PROPOFOL 100 ML IV SCH (18:34)
[2021-01-21] MEDS: hydrALAZINE HCL 20 MG/ML VL IV PRN (18:35)
[2021-01-21] MEDS: LORazepam 2MG/ML-1ML VIAL IV PRN ×2 (18:51→21:20)
[2021-01-21] MEDS: MORPHINE SULF INJ 2 MG/ML SYRINGE 1ML IV PRN ×2 (20:42→22:46)
[2021-01-22] VITALS (8 sets, daily range): BP systolic 115–150; BP diastolic 75–97
[2021-01-22] MEDS: LORazepam 2MG/ML-1ML VIAL IV PRN ×6 (00:23→22:43)
[2021-01-22] MEDS: MORPHINE SULF INJ 2 MG/ML SYRINGE 1ML IV PRN ×6 (01:35→22:42)
[2021-01-23] VITALS (7 sets, daily range): BP systolic 139–153; BP diastolic 80–113
[2021-01-23] MEDS: LORazepam 2MG/ML-1ML VIAL IV PRN ×7 (01:57→23:52)
[2021-01-23] MEDS: MORPHINE SULF INJ 2 MG/ML SYRINGE 1ML IV PRN ×7 (02:00→23:52)
[2021-01-24] MEDS: LORazepam 2MG/ML-1ML VIAL IV PRN ×4 (04:16→21:30)
[2021-01-24] MEDS: MORPHINE SULF INJ 2 MG/ML SYRINGE 1ML IV PRN ×4 (04:20→21:30)
[2021-01-24 05:00] VITALS: BP 148/106
[2021-01-24 08:19] VITALS: BP 137/94
[2021-01-24 13:00] VITALS: BP 159/105
[2021-01-24 16:07] VITALS: BP 149/107
[2021-01-24 21:49] VITALS: BP 132/119
[2021-01-25] MEDS: MORPHINE SULF INJ 2 MG/ML SYRINGE 1ML IV PRN ×4 (00:59→13:30)
[2021-01-25] MEDS: LORazepam 2MG/ML-1ML VIAL IV PRN ×4 (00:59→23:20)
[2021-01-25 05:25] VITALS: BP 144/77
[2021-01-25 09:00] VITALS: BP 162/104
[2021-01-25 13:37] VITALS: BP 156/87
[2021-01-25] MEDS ORDERED: ACETAMINOPHEN 650 MG RECT SUPP PR PRN (14:15)
[2021-01-25 16:47] VITALS: BP 133/94
[2021-01-25 22:00] VITALS: BP 132/99
[2021-01-26] MEDS: LORazepam 2MG/ML-1ML VIAL IV PRN (04:32)
[2021-01-26 05:00] VITALS: BP 139/103
[2021-01-26 08:25] VITALS: BP 139/103
[2021-01-26 08:47] VITALS: BP 163/107
[2021-01-26] MEDS ORDERED: FUROSEMIDE 20 MG/2 ML VIAL IV ONE (11:15)
[2021-01-26 12:35] VITALS: BP 146/88
== END 2021-01-26 16:08 | disposition hospice, home (50) | DRG 870 ==
LOC: EDBD 19:42 → ER 19:42 → TELE 01-09 02:03 → ICU WEST 01-09 03:47 → WEST WING 01-22 02:57
PROVIDERS: ADMIT Nurse Practitioner Family; ATTEND Internal Medicine
PROC: 03HY32Z Insertion of Monitoring Device into Upper Artery, Percutaneous Approach (ICD-10-PCS; principal; 2021-01-09)
PROC: 4A133B1 Monitoring of Arterial Pressure, Peripheral, Percutaneous Approach (ICD-10-PCS; 2021-01-09)
PROC: 02HV33Z Insertion of Infusion Device into Superior Vena Cava, Percutaneous Approach (ICD-10-PCS; 2021-01-09)
PROC: 5A1955Z Respiratory Ventilation, Greater than 96 Consecutive Hours (ICD-10-PCS; 2021-01-09)
PROC: 0BH17EZ Insertion of Endotracheal Airway into Trachea, Via Natural or Artificial Opening (ICD-10-PCS; 2021-01-09)
DX: A41.9 Sepsis, unspecified organism (principal); I21.4 Non-ST elevation (NSTEMI) myocardial infarction; G93.41 Metabolic encephalopathy; J96.01 Acute respiratory failure with hypoxia; J69.0 Pneumonitis due to inhalation of food and vomit; I46.2 Cardiac arrest due to underlying cardiac condition; I49.01 Ventricular fibrillation; N17.0 Acute kidney failure with tubular necrosis; J98.11 Atelectasis; G93.1 Anoxic brain damage, not elsewhere classified; Z66 Do not resuscitate; Z51.5 Encounter for palliative care; I10 Essential (primary) hypertension; E78.5 Hyperlipidemia, unspecified; D64.9 Anemia, unspecified; B96.5 Pseudomonas (aeruginosa) (mallei) (pseudomallei) as the cause of diseases classified elsewhere; E87.6 Hypokalemia; Z20.822 Contact with and (suspected) exposure to COVID-19; E86.1 Hypovolemia; E66.9 Obesity, unspecified; T68.XXXA Hypothermia, initial encounter; G25.3 Myoclonus; I48.91 Unspecified atrial fibrillation; Z68.29 Body mass index [BMI] 29.0-29.9, adult; Z74.01 Bed confinement status; Z79.82 Long term (current) use of aspirin; Z79.899 Other long term (current) drug therapy; Z82.49 Family history of ischemic heart disease and other diseases of the circulatory system; Z83.3 Family history of diabetes mellitus; Z86.73 Personal history of transient ischemic attack (TIA), and cerebral infarction without residual deficits
CPT/HCPCS: 31500; 31720; 36415; 36556; 36569; 36600; 51702; 70450; 71045; 71250; 74176; 76705; 80048; 80053; 80061; 80202; 80307; 80320; 81001; 82140; 82550; 82553; 82805; 82962; 83036; 83605; 83735; 83880; 84100; 84484; 85025; 85379; 85610; 85730; 86850; 86900; 86901; 87040; 87070; 87077; 87081; 87186; 87205; 87426; 93005; 93306; 93970; 94002; 94003; 95819; 96365; 96367; 96375; 97110; 99291; A4618; G0378; J1956; J2001; J2405; J2543; J2704; J3480; J3490; J7060; Q9956